=== PATIENT | male | born 1965 | race Caucasian/White ===

== ENCOUNTER 2024-02-09 14:44 | Emergency (ER) | payer OTHER ==
[~2024-02-09] VITALS: Ht 175.3 cm; Wt 113.4 kg
[2024-02-09] MEDS ORDERED: CLONAZEPAM1 MG PO (15:14)
[2024-02-09] MEDS ORDERED: TOPROL XL100 M1 (15:14)
[2024-02-09] MEDS ORDERED: ALLEGRA ALLERG180 MG (15:14)
[2024-02-09] MEDS ORDERED: COZAAR25 MG PO (15:14)
[2024-02-09] MEDS ORDERED: DYMISTA NASAL S23 GM NS (15:15)
[2024-02-09] MEDS ORDERED: UCERIS9 MG (15:15)
[2024-02-09] MEDS ORDERED: ATIVAN1 M1 PO (15:16)
[2024-02-09 17:40] LABS: PH,URINE 5.5 (5.0-8.0); URINE APPEARANCE Clear; URINE BILIRRUBIN Negative (NEGATIVE); URINE BLOOD Moderate; URINE COLOR Yellow; URINE GLUCOSE Negative (NEGATIVE); URINE KETONE Trace (NEGATIVE); URINE LEUKOCYTE Negative; URINE NITRATE Negative; URINE PROTEIN Negative (NEGATIVE); URINE UROBILINOGEN 0.2 E.U./dl
[2024-02-09 17:40] LABS: HEMATOCRIT 48.2 % (39.0-48.0); HEMOGLOBIN 16.4 g/dL (13-16.00); MEAN CELL VOLUME 88.7 fL (80.0-100.00); MEAN CORPUSCULAR HEMOGLOBIN 30.2 pg (27.00-32.0); PLATELET COUNT 231 K/uL (150-450); RED BLOOD COUNT 5.43 M/uL (4.00-6.00); RED CELL DISTRIBUTION WIDTH 13.8 % (11.5-14.5)
[2024-02-09 17:44] LABS: URINE BACTERIA 15.9 uL (0.0-1933); URINE RBC 261.6 uL (0.0-20.8); URINE WBC 28.9 uL (0.0-23.2)
[2024-02-09 17:56] LABS: ALBUMIN 4.4 gm/dL (3.4-5.0); BILIRUBIN TOTAL 2.41 mg/dL (0.3-1.2); CALCIUM 9.4 mg/dL (8.5-10.1); CREATININE SERUM 1.13 mg/dL (0.70-1.30); GFR 66.65; GLOBULINA 4.1 G/DL (2.4-3.5); POTASSIUM 3.96 mEq/L (3.5-5.1); TOTAL PROTEIN 8.5 gm/dL (6.4-8.2)
[2024-02-09] MEDS ORDERED: CEFTRIAXONE SODIUM 1,000 MG VIAL IM ONE (19:30)
== END 2024-02-09 20:33 | disposition home or self-care (01) ==
LOC: ER 14:46
PROVIDERS: Preventive Medicine Public Health & General Preventive Medicine
DX: R31.9 Hematuria, unspecified (principal); F41.8 Other specified anxiety disorders; K21.9 Gastro-esophageal reflux disease without esophagitis; J30.89 Other allergic rhinitis; I49.3 Ventricular premature depolarization; Z88.8 Allergy status to other drugs, medicaments and biological substances; N20.0 Calculus of kidney